=== PATIENT | male | born 1970 | race Caucasian/White ===

== ENCOUNTER 2018-10-01 12:27 | Emergency (ER) | payer BC ==
[2018-10-01] MEDS: HYDROCODONE/APAP (5/325) TAB PO (13:17)
[2018-10-01] MEDS: KETOROLAC 30 MG INJ IM (13:18)
== END 2018-10-01 14:24 | disposition home or self-care (01) ==
LOC: FTE 12:27
DX: M54.9 Dorsalgia, unspecified (principal); F17.210 Nicotine dependence, cigarettes, uncomplicated
CPT/HCPCS: 72100; 96372; 99284-25